=== PATIENT | male | born 1985 | race Caucasian/White ===

== ENCOUNTER 2024-05-20 11:49 | Inpatient (IN) | payer OTHER, SELFPAY ==
[2024-05-19 18:48] VITALS: BMI 26.0
[2024-05-19 18:55] VITALS: BP 130/84
[2024-05-19 19:04] LABS: % Basophils 0.5 % (0-2); % Eosinophils 1.2 % (0-6); % Immature Granulocytes 0.5 % (0-0.5); % Lymphocytes 16.3 % (20.5-51.1); % Neutrophils 66.5 % (42.2-75.2); Absolute Basophils 0.1 10^3/uL (0-0.2); Absolute Eosinophils 0.1 10^3/uL (0-0.7); Absolute Immature Granulocytes 0.1 10^3/uL (0-0.05); Absolute Lymphocytes 1.7 10^3/uL (1.2-3.4); Absolute Monocytes 1.6 10^3/uL (0.1-0.6); Absolute Neutrophils 6.9 10^3/uL (1.4-6.5); Hematocrit 34.7 % (39.0-52.0); Hemoglobin 12.2 g/dL (13.0-18.0); Mean Corp Hgb Conc. 35.2 g/dL (33.0-37.0); Mean Corpuscular Hgb 34.9 pg (27.0-31.0); Mean Corpuscular Volume 99.1 fL (80.0-94.0); Mean Platelet Volume 11.8 fL (7.4-10.4); Nucleated Red Blood Cells % 0 % (-); Platelet Count 126 10^3/uL (130-400); Red Cell Dist. Width 13.1 % (11.5-14.5); White Blood Cell Count 10.4 10^3/uL (4.8-10.8)
[2024-05-19] MEDS: ATIVAN 2 MG IV (19:12)
[2024-05-19] MEDS: NSS 1000 IV (19:13)
[2024-05-19 19:19] LABS: ALT (SGPT) 264 U/L (0-50); AST (SGOT) 312 U/L (17-59); Albumin 5.3 g/dl (3.5-5.0); Alkaline Phosphatase 91 U/L (38-126); Blood Urea Nitrogen 39 mg/dl (9-20); Calcium 10.7 mg/dl (8.4-10.2); Carbon Dioxide 23 mmol/L (22-30); Chloride 97 mmol/L (98-107); Estimated Creatinine Clearance 60 ml/min; Glucose 97 mg/dl (70-99); Potassium 3.8 mmol/L (3.5-5.1); Salicylate < 1.0 mg/dl (2.0-20.0); Sodium 136 mmol/L (135-145); Total Bilirubin 2.8 mg/dl (0.2-1.3)
[2024-05-19 19:20] LABS: Alcohol None Detected
[2024-05-19 19:23] LABS: Amphetamines Negative (Negative); Barbiturates Negative (Negative); Benzodiazepines Negative (Negative); Buprenorphine Negative (Negative); Cocaine Negative (Negative); Marijuana Positive (Negative); Methadone Negative (Negative); Methamphetamines Negative (Negative); Opiates Negative (Negative); Phencyclidine Negative (Negative)
[2024-05-19 19:24] LABS: Tricyclic Antidepressants Negative (Negative)
[2024-05-19 20:00] VITALS: BP 127/87
--- NOTE | 2024-05-19 20:13 | ED.GENMED ---
History of Present Illness
General
Chief Complaint: Withdrawal Symptoms
Source: patient, ambulance crew and police ([facility] guards)
Exam Limitations: altered mental status
Time Seen by Provider: 05/19/24 18:53
History of Present Illness
History of Present Illness:
39-year-old male brought in by EMS and [facility] long term guards for acute alcohol withdrawal. Guard states that he was hallucinating. Patient states that his last alcohol intake was 13 days ago but he was brought in last evening for
a DUI. Patient states that he has not been feeling good for the last week.
Past History
Past History
ED Past Medical History: None
ED Past Surgical History: None
Social History
Personal: Single
Living: alone
Employment: Employed
Review of Systems
Review of Systems
Allergies reviewed?: Yes
Other source history: ambulance crew and guardian
All Other Systems: ROS reviewed and negative except as documented in HPI and ROS
Constitutional: Reports chills
EENT: Reports no symptoms
Respiratory: Reports no symptoms
Cardiac: Reports no symptoms
ABD/GI: Reports no symptoms
: Reports no symptoms
Musculoskeletal: Reports no symptoms
Skin: Reports no symptoms
Neurological: Reports dizzy
Endocrine: Reports no symptoms
Hematologic/Lymphatic: Reports no symptoms
Psychiatric: Reports anxiety
Phy Exam
General Physical Exam
General Presentation: mild distress
General age: appears older than age
General Skin: warm and diaphoretic
General Habitus: normal
General Mental: anxious, appears intoxicated and confused
General Hydration: appears well hydrated
ENT Exam
ENT Exam: EOMI, pharynx normal, neck supple and normocephalic
Eye Exam
Eye Exam: PERRL, cornea clear and conjunctiva normal
Cardiovascular Exam
Cardiovascular Exam: regular rate/rhythm, no edema, no murmur and normal peripheral pulses
Pulmonary Exam
Pulmonary Exam: lungs clear, no respiratory distress, no rales, no crackles, no rhonchi, no stridor, no wheezing and no cough
Gastrointestinal Exam
Gastrointestinal Exam: normal bowel sounds, non tender, soft, no organomegaly, no pulsatile mass and non distended
Neurological Exam
Neurological Exam: alert, oriented x3, no motor deficits and speech normal
Musculoskeletal Exam
Musculoskeletal Exam: full ROM and other (tremor)
Skin Exam
Skin Exam: normal color, warm/dry, no rash and no petechia
Psychiatric Exam
Psychiatric Exam: normal mood/affect
Scores
Withdrawal Assessment of Alcohol
Withdrawal Assessment Completed?: Yes
Nausea and Vomiting: Mild nausea with no vomiting
Tactile Disturbances: Very mild itching, pins and needles, burning or numbness
Tremor: Moderate, with patient's arms extended
Auditory Disturbances: Not present
Paroxysmal Sweats: Beads of sweat obvious on forehead
Visual Disturbances: Mild sensitivity
Anxiety: Mild anxiety
Headache, Fullness in Head: Not present
Agitation: Moderately fidgety and restless
Orientation and clouding of sensorium: Oriented and can do serial additions
Total CIWA Score: 17
Alcohol Withdrawal Medication Recommendation: Equal to MSAS Score 8-11. Lorazepam 1-2mg IV NOW & re-assess q1hr
Course
Orders/Labs/Results
Orders:
Orders
05/19/24 18:56
Alcohol Urgent
Complete Blood Count/With Diff Urgent
Comprehensive Metabolic Panel Urgent
Salicylate Urgent
Urine Drug Abuse Screen Urgent
Date Specimen was Collected: 05/19/24
Time Specimen was Collected: 18:52
05/19/24 19:07
0.9% Sodium Chloride 1000 ml [Nss] 1,000 ml IV BOLUS
Lorazepam [Ativan] 2 mg IV NOW STA
05/19/24 20:38
Admit/Transfer Patient As Directed
Co-Sign Provider:
Level of Care: Observation services
Assign to:: Medical/Surgical
Physician / Group: [facility]
Diagnosis: hallucination
05/19/24 21:00
0.9% Sodium Chloride 1000 ml [Nss] 1,000 ml Mvi, Adult [Multivitamin] 10 ml Thiamine Injection 100 mg IV 250 mls/hr
05/19/24 22:31
DX Deep Vein Thrombosis Video Routine
05/20/24 18:00
Enoxaparin Sodium [Lovenox] 40 mg SC QPM
Abnormal Lab Results
05/19/24
18:56
RBC 3.50 L 10^6/uL
(4.70-6.10)
Hgb 12.2 L g/dL
(13.0-18.0)
Hct 34.7 L %
(39.0-52.0)
MCV 99.1 H fL
(80.0-94.0)
MCH 34.9 H pg
(27.0-31.0)
Plt Count 126 L 10^3/uL
(130-400)
MPV 11.8 H fL
(7.4-10.4)
Abs Immat Gran (auto) 0.1 H 10^3/uL
(0-0.05)
Absolute Neuts (auto) 6.9 H 10^3/uL
(1.4-6.5)
Absolute Monos (auto) 1.6 H 10^3/uL
(0.1-0.6)
Lymphocytes % 16.3 L %
(20.5-51.1)
Monocytes % 15.0 H %
(1.7-9.3)
Chloride 97 L mmol/L
(98-107)
BUN 39 H mg/dl
(9-20)
Creatinine 1.8 H mg/dL
(0.7-1.3)
Calcium 10.7 H mg/dl
(8.4-10.2)
Total Bilirubin 2.8 H mg/dl
(0.2-1.3)
AST 312 H U/L
(17-59)
ALT 264 H U/L
(0-50)
Albumin 5.3 H g/dl
(3.5-5.0)
Salicylates < 1.0 L mg/dl
(2.0-20.0)
U Marijuana (THC) Screen Positive H
(Negative)
05/19/24 18:56
05/19/24 18:56
Vital Signs
Initial and Last Documented VS:
Initial Vital Signs
Temp Pulse Resp BP Pulse Ox
98.2 F 81 21 130/84 97
05/19/24 18:55 05/19/24 18:55 05/19/24 18:55 05/19/24 18:55 05/19/24 18:55
Last Documented Vital Signs
Temp Pulse Resp BP Pulse Ox
98.3 F 77 16 108/87 95
05/19/24 22:13 05/19/24 22:13 05/19/24 22:13 05/19/24 22:13 05/19/24 22:13
*Critical Care Note
Total Time (30-74mins, 75-104mins- exclusive of procedures): Not Applicable
Patient Management
Social determinants of health affecting care: Living situation, Poor outpatient follow-up and Poor social support
Discussion with other providers: [facility] staff
ED Attending Note
-
Portions of this chart may have been created with voice recognition software.� Occasional wrong word or��sound alike� substitutions may have occurred due to the inherent limitations of voice recognition software.
Discharge Plan
Departure
Patient Disposition: Admit
Date of Disposition: 05/19/24
Time of Disposition: 20:26
Admit to: Telemetry
Presentation/result/management discussed w/ accepting MD/DO: Hospitalist
Patient with high blood pressure during this ER visit?: No
Condition: Good
Discharge Problem:
Alcohol withdrawal
Interventions
Interventions:
*Risk Screen - Suicide Last Done: 05/19/24 18:59
*General Assessment Last Done: 05/19/24 18:59
*Neglect/Abuse Screening Last Done: 05/19/24 18:59
ED- Fall Risk Assessment Last Done: 05/19/24 18:53
*ED COVID-19 Vaccine History Last Done: 05/19/24 18:57
*Nursing Disposition Last Done: 05/19/24 22:07
ED- Neurological Assessment Last Done: 05/19/24 18:53
ED-Psychological Assessment Last Done: 05/19/24 18:54
Discharge Date and Time
Discharge Date/Time: 05/19/24 22:07
[2024-05-19 21:00] VITALS: BP 118/104
--- NOTE | 2024-05-19 21:04 | HPS.HSE ---
Addendum entered and electronically signed by Raymundo Vazquez MD 05/19/24 21:16:
Regarding elevated LFT I will get an ultrasound of the liver in the morning also recheck LFT and get viral hepatitis panel, the recommendation accordingly.
Original Note:
Family Physician
-
Family Physician: Facility [facility]
Chief Complaint
-
Hallucination and withdrawal symptom
History of Present Illness
39-year-old male who was brought in from [facility] guard for acute withdrawal likely alcohol withdrawal symptom, patient currently being sedated as he was combative and hallucinating in the ER received Ativan in the ER and
currently very sleepy, opens eyes to verbal stimuli and falls back asleep and he is under police custody at the room.
Therefore all information obtained from the guard and ER physician.
According to the guard he was hallucinating earlier basically he was picked up last evening for DUI while he told everybody that the last drink was 13 days ago.
Other than the above-mentioned symptoms no any other complaint abnormality noticed by the guards to the ER physician, he was awake, alert oriented able to answer question properly but he was hallucinating and agitated and combative earlier.
His UDS is only positive for marijuana. On his medication list was provided by the guards to his his Tylenol 3 supposed to take a dose 3 times a day of his UDS is negative for narcotics.
Medical History
Past Medical History
Past Medical History: Reports Other
Additional Past Medical History:
Past medical history cannot be obtained because of the patient's sedated currently
social history: currently incarcerated, look like according to the guards drink alcohols regularly and history of alcohol abuse and been arrested yesterday for dui. no any other information can be obtained
family history: cannot be obtained
Past Surgical History: Reports Other
Social History
Unable to obtain full social history at this time due to: Other
Family History
Family History: Other
Allergies / Home Medications
Allergies reflects when Allergies were last updated in [employer].
Home Medications with original date entered in [employer]
Allergy/Medication List:
Allergies
Allergy/AdvReac Type Severity Reaction Status Date / Time
naproxen Allergy Unknown Verified 05/19/24 20:53
Home Medications
acetaminophen 300 mg-codeine 30 mg tablet 1 tab PO BID 05/19/24
acetaminophen 300 mg-codeine 30 mg tablet 1 tab PO HS 05/19/24
clonazepam 0.5 mg tablet 0.5 mg PO HS 05/19/24
clotrimazole 1 % topical cream (Antifungal (clotrimazole)) 1 applic topical BID 05/19/24
escitalopram oxalate 5 mg tablet 5 mg PO HS 05/19/24
multivitamin 1 tab PO DAILY 05/19/24
Review of Systems
-
Unable to obtain full review of systems at this time due to: Other
Physical Exam
Vital Signs
Vital Signs
Temp Pulse Resp BP Pulse Ox
98.2 F 73 16 127/87 97
05/19/24 18:55 05/19/24 20:30 05/19/24 20:30 05/19/24 20:00 05/19/24 20:30
Physical exam:
General: Sedated, sleepy, arousable to verbal stimuli but falls back asleep, not answer question,, not in distress
HEENT: No active discharge, ecchymosis or bruising, moist lips, tongue and mucous membrane.
Eyes: No discharge or red conjunctiva, no nystagmus, pupils are reactive and equal
Neck:Supple, no JVD no bruit no goiter.
Respiratory: Normal AP contour and diameter, normal chest wall movement, normal respiratory effort, no respiratory distress,
Lungs: Good air entry bilaterally, no wheezing or rhonchi, no rales or crackles
Heart: S1, S2 regular, normal rate, no added sound.
Gastrointestinal: Positive bowel sounds, soft, nontender, no guarding or rigidity or organomegaly
Musculoskeletal: , no chest wall abnormality or tenderness. All joints and extremities have good range of motion, no muscle tenderness or any joint swelling or tenderness.
Extremities: No pitting edema, good peripheral pulses, good range of motion
Skin: Warm and dry, no ulceration, normal color.
Neurological: Sleepy, sedated, opens eyes to verbal stimuli and falls back asleep, not in distress, good muscle tone
Psychiatric: Sleepy, sedated, was hallucinating combative earlier
Physical Exam
General: Other
Laboratory Results
-
05/19/24 18:56
05/19/24 18:56
Laboratory Results
Total Bilirubin 2.8 mg/dl (0.2-1.3) H 05/19/24 18:56
AST 312 U/L (17-59) H 05/19/24 18:56
ALT 264 U/L (0-50) H 05/19/24 18:56
Alkaline Phosphatase 91 U/L (38-126) 05/19/24 18:56
Data Reviewed
-
Lab Data: Labs Reviewed by me and Discussed with Physician
Old Records: Reviewed
Impression/Plan
-
IMPRESSION:
39-year-old male brought from [facility] for withdrawal and hallucinations symptom he was picked up yesterday and look like he was doing well until earlier today. UDS is only positive for cannabinoid, not sure if there is
any other substance involved, doubt any infectious cause like encephalomeningitis.
Hallucination, concerning for withdrawal alcoholic versus other causes like narcotic not sure if he is taking this Tylenol 3 as UDS is negative,
Doubted any infection and there is no fever or leukocytosis including encephalomyelitis
Alcohol abuse
Elevated transaminase likely secondary to alcohol abuse while been combative and agitation could be a possible disease including transaminitis from muscle origin
Elevated creatinine, , Last time in the system was in 2012 that was normal
Thrombocytopenia, likely secondary to alcohol abuse
Microcytic anemia likely secondary to alcohol abuse
Incarcerated because been arrested for DUI yesterday
Mood disorder
Not much other information can be obtained
PLAN:
Managed per cortisol protocol for now
Currently sedated in the ER given 2 mg IV Ativan
Close monitoring
Please in the room
D5 normal saline
Multiple
Currently
Recheck lab
Avoid hepatotoxins
I will add morphine as needed for any withdrawal symptoms as I mentioned earlier on his medication list was provided by the police there is Tylenol 3 supposed to take it scheduled but UDS is negative for narcotic.
If there is any concerning other symptom imaging of brain and neurology or infectious disease may need to be consulted
Recheck lab.
Avoid nephrotoxin and hepatotoxin.
High risk for DT and withdrawal
Discussed with nurse and ER physician
CODE STATUS full code
DVT prophylaxis Lovenox with monitoring of platelet count
[2024-05-19] MEDS: MULTIVITAMIN 1011 MG IV (21:11)
[2024-05-19] MEDS: MULTIVITAMIN 1011 ML IV (21:11)
[2024-05-19] MEDS: LEXAPRO 5 MG PO (22:07)
[2024-05-19] MEDS: THIAMINE INJECTION 200 MG IV (22:07)
[2024-05-19] MEDS: D5/0.9% SODIUM CHLORIDE 1000 IV (22:08)
[2024-05-19 22:13] VITALS: BP 108/87; BMI 26.2
[2024-05-19 23:00] VITALS: BP 115/73
[2024-05-20 07:27] VITALS: BP 118/76
[2024-05-20 08:34] LABS: % Basophils 0.9 % (0-2); % Eosinophils 2.6 % (0-6); % Immature Granulocytes 0.4 % (0-0.5); % Neutrophils 57.1 % (42.2-75.2); Absolute Basophils 0.1 10^3/uL (0-0.2); Absolute Eosinophils 0.2 10^3/uL (0-0.7); Absolute Lymphocytes 1.5 10^3/uL (1.2-3.4); Absolute Monocytes 1.2 10^3/uL (0.1-0.6); Hematocrit 33.3 % (39.0-52.0); Hemoglobin 11.6 g/dL (13.0-18.0); Mean Corp Hgb Conc. 34.8 g/dL (33.0-37.0); Mean Corpuscular Hgb 35.9 pg (27.0-31.0); Mean Corpuscular Volume 103.1 fL (80.0-94.0); Mean Platelet Volume 12.1 fL (7.4-10.4); Nucleated Red Blood Cells % 0 % (-); Platelet Count 105 10^3/uL (130-400); Red Blood Cell Count 3.23 10^6/uL (4.70-6.10); Red Cell Dist. Width 13.2 % (11.5-14.5)
[2024-05-20] MEDS: D5/0.9% SODIUM CHLORIDE IV (08:39)
[2024-05-20] MEDS: THIAMINE INJECTION 200 MG IV ×2 (08:41→20:16)
[2024-05-20] MEDS: FOLVITE 1 MG PO (08:42)
--- NOTE | 2024-05-20 09:21 | W.PN.HOSP.TC ---
Today's Communication/Plan
-
Trend LFTs
For ABD US
Assessment / Plan
Assessment / Plan
39-year-old male brought from [facility] for withdrawal and hallucinations symptom he was picked up yesterday and look like he was doing well until earlier today. UDS is only positive for cannabinoid, not sure if there is
any other substance involved, doubt any infectious cause like encephalomeningitis.
Hallucination, concerning for withdrawal alcoholic versus other causes like narcotic not sure if he is taking this Tylenol 3 as UDS is negative,
Alcohol abuse
Elevated transaminase likely secondary to alcohol abuse while been combative and agitation could be a possible disease including transaminitis from muscle origin
Acute kidney injury
Thrombocytopenia, likely secondary to alcohol abuse
Microcytic anemia likely secondary to alcohol abuse
Incarcerated because been arrested for DUI
Mood disorder
Hypokalemia
Not much other information can be obtained
PLAN:
Supportive care
Trend LFTs, follow-up hepatitis panel
Abdominal ultrasound
Replete potassium
CODE STATUS full code
DVT prophylaxis Lovenox with monitoring of platelet count
Total time spent to see the patient on the floor, examine the patient, review data and lab results, discuss treatment plan with patient, nursing staff around 35 minutes.
Physical Exam
General: No acute distress
HEENT: Normocephalic, Atraumatic, EOMI, MMM
Respiratory: Clear to Auscultation bilaterally
Cardiac: Normal S1/S2, Regular Rate and Rhythm
GI: Soft, Nontender, Nondistended, Normal Bowel Sounds
Extremities: No Clubbing, Cyanosis, or Edema
Neuro: Nonfocal/Grossly Intact
Psych: Calm, Cooperative
Derm: No Visible lesions
Anticipated Discharge: Within 24 hours
Subjective/Interval History
-
Date of Service: May 20, 2024
No more hallucinations. No fever, no vomiting.
Objective Data
-
Labs:
Laboratory Results
05/20/24
08:06
WBC 7.0
Hgb 11.6 L
Hct 33.3 L
Plt Count 105 L
Sodium Pending
Potassium Pending
Chloride Pending
Carbon Dioxide Pending
BUN Pending
Creatinine Pending
Glucose Pending
Calcium Pending
Total Bilirubin Pending
AST Pending
ALT Pending
Alkaline Phosphatase Pending
Vital Signs:
Vital Signs
Temp Pulse Resp BP Pulse Ox
97.9 F 65 20 118/76 96
05/20/24 07:27 05/20/24 07:27 05/20/24 07:27 05/20/24 07:27 05/20/24 07:27
[2024-05-20 09:28] LABS: ALT (SGPT) 244 U/L (0-50); AST (SGOT) 301 U/L (17-59); Alkaline Phosphatase 80 U/L (38-126); Blood Urea Nitrogen 26 mg/dl (9-20); Calcium 9.3 mg/dl (8.4-10.2); Carbon Dioxide 23 mmol/L (22-30); Chloride 104 mmol/L (98-107); Direct Bilirubin 1.3 mg/dl (0.0-0.4); Estimated Creatinine Clearance > 125 ml/min; Glucose 85 mg/dl (70-99); Magnesium 1.8 mg/dl (1.6-2.3); Potassium 3.3 mmol/L (3.5-5.1); Sodium 137 mmol/L (135-145); Total Bilirubin 2.6 mg/dl (0.2-1.3); Total Protein 6.4 g/dl (6.3-8.2); eGFR > 60.00
--- NOTE | 2024-05-20 10:58 | PTCARENOTE ---
Notified provider that the patient's K is 3.3. Awaiting necessary orders, if any.
--- NOTE | 2024-05-20 15:20 | CM ---
patient from [facility]
DX ETOH WD and hallucinations
Plan: back to [facility] when stable.
[facility]# [phone]
[2024-05-20 15:41] VITALS: BP 102/74
[2024-05-20] MEDS: KCL 40 MEQ PO (16:00)
[2024-05-20] MEDS: D5/0.9% SODIUM CHLORIDE 1000 IV (16:01)
[2024-05-20 16:39] VITALS: BMI 26.2
[2024-05-20] MEDS: LOVENOX 40 MG SC (17:19)
[2024-05-20 19:46] LABS: Hepatitis B Core Ab, Total Negative (Negative); Hepatitis B Surface Antibody Negative; Hepatitis C Antibody Negative (Negative)
[2024-05-20 19:53] LABS: Hepatitis A Antibody, Total Negative (Negative)
[2024-05-20] MEDS: LEXAPRO 5 MG PO (20:16)
[2024-05-20 23:31] VITALS: BP 123/70
[2024-05-21] MEDS: D5/0.9% SODIUM CHLORIDE 1000 IV (02:20)
[2024-05-21 07:31] VITALS: BP 126/80
[2024-05-21] MEDS: FOLVITE 1 MG PO (08:11)
[2024-05-21] MEDS: THIAMINE INJECTION 200 MG IV (08:11)
--- NOTE | 2024-05-21 08:50 | W.PN.HOSP.TC ---
Today's Communication/Plan
-
Consult psychiatry
Assessment / Plan
Assessment / Plan
39-year-old male brought from [facility] for withdrawal and hallucinations symptom he was picked up yesterday and look like he was doing well until earlier today. UDS is only positive for cannabinoid, not sure if there is
any other substance involved, doubt any infectious cause like encephalomeningitis.
Hallucination, concerning for withdrawal alcoholic versus other causes like narcotic not sure if he is taking this Tylenol 3 as UDS is negative,
Alcohol abuse
Elevated transaminase likely secondary to alcohol abuse
Acute kidney injury
Thrombocytopenia, likely secondary to alcohol abuse
Incarcerated because been arrested for DUI
Mood disorder
Hypokalemia
Not much other information can be obtained
PLAN:
MERLYN resolved with IV fluids
Abdominal ultrasound reviewed, shows fatty liver
Elevated LFTs likely from alcohol abuse and fatty liver
Continues to be intermittently confused, consult psychiatry
CODE STATUS full code
DVT prophylaxis Lovenox with monitoring of platelet count
Total time spent to see the patient on the floor, examine the patient, review data and lab results, discuss treatment plan with patient, nursing staff around 35 minutes.
Physical Exam
General: No acute distress
HEENT: Normocephalic, Atraumatic, EOMI, MMM
Respiratory: Clear to Auscultation bilaterally
Cardiac: Normal S1/S2, Regular Rate and Rhythm
GI: Soft, Nontender, Nondistended, Normal Bowel Sounds
Extremities: No Clubbing, Cyanosis, or Edema
Neuro: Nonfocal/Grossly Intact
Psych: Calm, Cooperative
Derm: No Visible lesions
Anticipated Discharge: Within 24 hours
Subjective/Interval History
-
Date of Service: May 21, 2024
Patient exhibiting intermittent confusion, he thinks it was snowing the other day. No fever, no vomiting.
Objective Data
-
Vital Signs:
Vital Signs
Temp Pulse Resp BP Pulse Ox
98.2 F 62 20 126/80 97
05/21/24 07:31 05/21/24 07:31 05/21/24 07:31 05/21/24 07:31 05/21/24 07:31
I&O
05/20/24 05/21/24 05/22/24
06:59 06:59 06:59
Intake Total 1320 / 1320
Output Total 1425 / 1425
Balance -105 / -105
[2024-05-21 12:27] LABS: Hematocrit 34.5 % (39.0-52.0); Hemoglobin 12.2 g/dL (13.0-18.0); Mean Corp Hgb Conc. 35.4 g/dL (33.0-37.0); Mean Corpuscular Volume 101.8 fL (80.0-94.0); Mean Platelet Volume 11.7 fL (7.4-10.4); Platelet Count 144 10^3/uL (130-400); Red Blood Cell Count 3.39 10^6/uL (4.70-6.10); Red Cell Dist. Width 12.9 % (11.5-14.5); White Blood Cell Count 8.1 10^3/uL (4.8-10.8)
[2024-05-21 12:37] LABS: ALT (SGPT) 282 U/L (0-50); AST (SGOT) 308 U/L (17-59); Albumin 4.4 g/dl (3.5-5.0); Alkaline Phosphatase 98 U/L (38-126); Blood Urea Nitrogen 10 mg/dl (9-20); Calcium 9.7 mg/dl (8.4-10.2); Carbon Dioxide 23 mmol/L (22-30); Chloride 103 mmol/L (98-107); Estimated Creatinine Clearance > 125 ml/min; Glucose 103 mg/dl (70-99); Potassium 3.7 mmol/L (3.5-5.1); Sodium 136 mmol/L (135-145); Total Bilirubin 2.2 mg/dl (0.2-1.3); Total Protein 6.8 g/dl (6.3-8.2); eGFR > 60.00
--- NOTE | 2024-05-21 14:16 | CS.PSYCHR ---
Consult Summary - Psychiatry
-
Pt is 39 yo male who was brought in from [facility] for suspected alcohol withdrawal. Pt noted to be initially combative and hallucinating in the ER, given Ativan and became sedated. Pt was arrested for DUI the previous
night, and reported his last previous drink was 13 days prior. Pt seen for continued concern for hallucinations, confusion. Pt seen shackled to bed, with guards present. Pt alert, cooperative, denies further hallucinations. He states he has been
going through alcohol withdrawal for about 2 weeks, stopped at home. He states he was sober for 16 months, then relapsed about 2 months ago. Pt attributes some of his symptoms to dehydration from working in the heat. Pt on MSAS protocol, scores
have been low today, has not required Ativan.
Psych Hx: family counseling as a child when his father left, denies any other treatment
SH: incarcerated for DUI; alcohol use as noted, UDS + for MJ. 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
MSE: alert, oriented, good eye contact, cooperative. No overt signs of psychosis/hallucinations. Speech coherent, thought clear. Mood stable, affect appropriate, denies SI. Insight fair to limited
Imp: Alcohol Use d/o, severe
Rec: continue MSAS; return to [facility] when medically cleared. Treatment/rehab for alcohol use when feasible, consider involving [facility]
will follow loosely
--- NOTE | 2024-05-21 14:27 | CM ---
Addendum entered by Shasta Ruelas 05/21/24 15:34:
CM received consult for [facility]. CM placed call to Gilmer from [facility], will plan to meet with patient tomorrow morning if patient is agreeable.
CM ended phone call with Gilmer from [facility], reviewed chart, patient releases from custody and left AMA.
Original Note:
Patient from [facility], psychiatry consulted.
Plan: back to [facility] when stable.
[facility]# [phone]
[2024-05-21 14:36] VITALS: BP 138/87
--- NOTE | 2024-05-21 15:00 | PTCARENOTE ---
The patient was released from police custody and wanted to be discharged. MD contacted, patient would be leaving AMA due to clinical status. MD at bedside to discuss risks of leaving AMA, patient indicated understanding. CM consult offered by MD for
ETOH treatment, patient's brother contacted per patient's request and the patient's mother's phone number obtained. The patient did not want to await case management for resources. VSS. Patient ambulated out of the unit.
--- NOTE | 2024-05-21 17:48 | W.DCSUMMARY ---
Discharge Summary
Discharge Data
Date of Admission: 05/19/24
Date of Discharge: 05/21/24
-
Pending Results: No
Hospital Course
Discharge diagnosis:
Hallucinations/confusion, likely from alcohol withdrawal
Alcohol abuse with dependency
Elevated liver function test
Acute kidney injury
Thrombocytopenia
Mood disorder
Hypokalemia
Hepatic steatosis
Consults: Psychiatry
Abd US:
Hepatic steatosis.
No obstructive uropathy.
Hospital course:
39-year-old male with a past medical history of alcohol abuse with dependency and mood disorder was brought in from [facility] for suspected alcohol withdrawal symptoms and hallucinations. By report, he was picked up by the
police on 05/18/2024 for a DUI. He reports that his last drink was 13 days prior to admission. UDS is positive for cannabinoids. Patient reports eating a THC gummy prior to admission.
Patient was found to have acute kidney injury, and treated with IV fluids. His creatinine normalized.
He did have tachycardia and mild hand tremors. It is unclear when his last drink actually was. He reports that it was 13 days prior to admission, however police said they picked him up on 05/18/2024 for DUI.
Patient had elevated liver function tests. Hepatitis panel is negative. Suspect this is due to alcohol use. Abdominal ultrasound showed hepatic steatosis. His LFTs improved mildly.
Patient continues to have intermittent confusion and hallucinations. He was seen in conjunction with psychiatry, who recommended alcohol rehab.
Patient was released from [facility] custody on 05/21/2024. After his release, he was adamant about leaving AGAINST MEDICAL ADVICE. Risks and benefits were discussed, but patient insisted on leaving regardless.
Disposition: AGAINST MEDICAL ADVICE
Discharge planning: Required 50-minute
Discharge Plan
-
Patient Disposition: Against Medical Advice
Referrals:
[facility],Facility [Family Provider] -
Prescriptions:
No Action
multivitamin Tablet
1 tab PO DAILY
clonazepam 0.5 mg Tablet
0.5 mg PO HS
acetaminophen-codeine [Tylenol-Codeine #3] 300-30 mg Tablet
1 tab PO HS
acetaminophen-codeine [Tylenol-Codeine #3] 300-30 mg Tablet
1 tab PO BID
clotrimazole [Antifungal (clotrimazole)] 1 % Cream
1 applic TOPICAL BID
escitalopram oxalate 5 mg Tablet
5 mg PO HS
Discharge Date and Time
Discharge Date/Time: 05/21/24 15:06
Print Language: GREEK
== END 2024-05-21 15:06 | disposition left against medical advice (07) | DRG 894 ==
LOC: 4 WEST ACU 11:49
PROVIDERS: ADMITTING PHYSICIAN Internal Medicine; ATTENDING PHYSICIAN Family Medicine; CONSULT PHYSICIAN Psychiatry & Neurology Psychiatry; EMERGENCY PHYSICIAN Student in an Organized Health Care Education/Training Program
DX: F10.232 Alcohol dependence with withdrawal with perceptual disturbance (principal); N17.9 Acute kidney failure, unspecified; D69.6 Thrombocytopenia, unspecified; D50.9 Iron deficiency anemia, unspecified; E87.6 Hypokalemia; F39 Unspecified mood [affective] disorder; K76.0 Fatty (change of) liver, not elsewhere classified
CPT/HCPCS: 76700; 80053; 80179; 80306; 82077; 82248; 83735; 84443; 85025; 85027; 86704; 86705; 86706; 86708; 86709; 86803; 96374; 99285